=== PATIENT | female | born 1950 | race Caucasian/White ===

== ENCOUNTER → 2016-12-12 | Outpatient (CLI) | payer BC ==
--- NOTE | ~2016-12-12 | MY7 ---
[facility] A Service of [facility] & [facility] RADIOLOGY TEXT RESULTS PATIENT: TIEN GARVIN LOCATION: [facility] : 52 UNIT #: [id number] AGE: [address]: TORITO JOHNSON MD (INT MED) SEX: F ORDER DR: [id number] [facility] [address] [place], [place] [address] [id number] O MR#: [id number] Acc #: [id number] NAME: TIEN GARVIN. : 1950 SEX: F STUDY DATE/TIME: 12/12/2016 8:05 UNIT: [facility] ROOM: STUDY DESCRIPTION: MY Mammogram Dx Dig Lt Attending Physician: Torito Johnson M.D. Referring Physician: Torito Johnson M.D. Ordering Physician: Torito Johnson M.D. Primary Care Physician: Torito Johnson M.D. MEDICAL IMAGING REPORT This report is preliminary unless electronic signature is present EXAM Left digital diagnostic mammogram COMPARISON Bilateral diagnostic mammogram dated June 22, 2016 as well as left diagnostic mammogram dated September 06, 2015 and other mammograms dated June 23, 2015 and June 16, 2004. INDICATION Followup of probably benign left breast microcalcifications. FINDINGS Full field CC, MLO and XCCL views were obtained in addition to spot mag CC, XCCL and MLO views. 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 These microcalcifications are coral-like on the spot mag ML view. Left breast is otherwise mammographically stable. IMPRESSION Stable probably benign left breast microcalcifications in the 2:30 posterior third. These have demonstrated 1-year and 6-month stability. The patient is due for imaging of the right breast in June 2017 and as well the left breast microcalcifications should be reevaluated with bilateral diagnostic mammography in June 2017 to document overall 2-year stability of these probably benign left breast microcalcifications. Findings and recommendations were discussed with the patient upon termination of today's exam. Patients over the age of 40 are entered into a reminder system with target due date for the next mammogram. A result letter will also be sent to the patient. [facility] A Service of [facility] [place] RADIOLOGY TEXT RESULTS PATIENT: TIEN GARVIN LOCATION: [facility] : 52 UNIT #: [id number] AGE: [address]: TORITO JOHNSON MD (INT MED) SEX: F ORDER DR: BIRADS: 3 Probably Benign Finding; Short interval follow-up suggested Dictated by... Newton Briones M.D. THIS IS AN ELECTRONICALLY VERIFIED REPORT Newton Briones M.D. at 12/12/2016 1:07 PM Abbie TD: 12/12/2016 11:55 JOB #: [id number] MEDICAL IMAGING REPORT COPY
== END | disposition home or self-care (01) ==
LOC: CMAM 07:43
DX: R92.1 Mammographic calcification found on diagnostic imaging of breast (principal); R92.0 Mammographic microcalcification found on diagnostic imaging of breast
CPT/HCPCS: G0206

== ENCOUNTER → 2017-06-25 | Outpatient (CLI) | payer BC ==
--- NOTE | ~2017-06-25 | US128 ---
[id number] [facility] [address] [place], [place] [address] [id number] O MR#: [id number] [facility] #: [id number] NAME: TIEN GARVIN : 1950 SEX: F STUDY DATE/TIME: 06/25/2017 13:08 UNIT: [facility] ROOM: STUDY DESCRIPTION: Thyroid Attending Physician: Bossman Johnson M.D. Referring Physician: Bossman Johnson M.D. Ordering Physician: Bossman Property Management Intern Alex Primary Care Physician: Bossman Johnson M.D. MEDICAL IMAGING REPORT This report is preliminary unless electronic signature is present EXAM Ultrasound of the thyroid gland INDICATION Enlarged thyroid gland. Patient had a prior thyroid ultrasound performed in June 2016 which showed a hypoechoic nodule within the right thyroid lobe. This was stable when compared to September 2015. TECHNIQUE Rico-scale and color Doppler sonographic images were obtained through the thyroid gland. FINDINGS Right lobe of the thyroid gland measures 1.6 x 4.5 x 1.9 cm. Left lobe measures 1.7 x 3.7 x 1.7 cm. Isthmus measures about 3 mm in thickness. Within the right lobe of the thyroid gland, there is a somewhat ill-defined hypoechoic nodule measuring 7 x 6 x 7 mm. This appears unchanged when compared to the exam from September 2015. No additional nodules are seen on the right. Probable cyst is seen medially within the left lobe of the thyroid gland measuring 4 x 3 x 5 mm. No definite solid nodules are seen on the left. I do think that the probable cyst was probably present in June 2016 but was not measured as a nodule at that time. IMPRESSION 1. Stable hypoechoic nodule within the right lobe of the thyroid gland, unchanged since September 2015 and favored to be benign. 2. Probable cyst, or other benign lesion within the left lobe of the thyroid gland measuring 4 x 3 x 5 mm probably not significantly changed when compared to June 2016. Dictated by... Ximena Alcala M.D. THIS IS AN ELECTRONICALLY VERIFIED REPORT Ximena Alcala M.D. at 06/26/2017 5:07 PM AFF/kavon TD: 06/26/2017 08:28 JOB #: [id number] MEDICAL IMAGING REPORT Page 1 of 1 COPY
--- NOTE | ~2017-06-25 | MY26 ---
[facility] A Service of [facility] RADIOLOGY TEXT RESULTS PATIENT: TIEN GARVIN LOCATION: [facility] : 52 UNIT #: [id number] AGE: [address]: TORITO JOHNSON MD (INT MED) SEX: F ORDER DR: [id number] [facility] [address] [place], [place] [address] [id number] O MR#: [id number] Acc #: [id number] NAME: TIEN GARVIN : 1950 SEX: F STUDY DATE/TIME: 06/25/2017 12:46 UNIT: [facility] ROOM: STUDY DESCRIPTION: [facility] DIAGNOSTIC W/ CAD BILAT Attending Physician: Torito Johnson M.D. Referring Physician: Torito Johnson M.D. Ordering Physician: Torito Development Technical Leaddilma Johnson Primary Care Physician: Torito Johnson M.D. MEDICAL IMAGING REPORT This report is preliminary unless electronic signature is present EXAM Diagnostic mammogram, 06/25/2017 INDICATIONS Yearly screening on the right. Additional 6-month followup of the left breast for probably benign calcifications. Patient has no current complaints. TECHNIQUE Digital CC and MLO views of both breasts were obtained. Magnification CC and ML views of the left breast were obtained. Study is reviewed with an FDA-approved CAD device. Comparison made with 12/12/2016, 06/22/2016, 09/06/2015, and 06/23/2015. FINDINGS Breast parenchyma remains heterogeneously dense. No dominant masses or suspicious microcalcifications are seen. Scattered benign calcifications in both breasts are stable. The cluster in the upper outer left breast is also stable and therefore benign. Findings were discussed with the patient at the time of her examination today. IMPRESSION Benign mammogram. Routine yearly mammographic screening recommended. Patients over the age of 40 are entered into a reminder system with target due date for the next mammogram. A result letter will also be sent to the patient. BIRADS: 2 Benign finding Dictated by... [facility] A Service [facility] RADIOLOGY TEXT RESULTS PATIENT: TIEN GARVIN LOCATION: [facility] #: [id number] : 52 UNIT #: [id number] AGE: [address]: TORITO JOHNSON MD (INT MED) SEX: F ORDER DR: Giuliano Wade Jr., M.D. THIS IS AN ELECTRONICALLY VERIFIED REPORT Giuliano Wade Jr., M.D. at 06/26/2017 4:38 PM SAMY/solomon TD: 06/26/2017 03:17 JOB #: [id number] MEDICAL IMAGING REPORT Page 1 of 1 COPY
== END | disposition home or self-care (01) ==
LOC: CMAM 12:20
DX: R92.1 Mammographic calcification found on diagnostic imaging of breast (principal); E01.0 Iodine-deficiency related diffuse (endemic) goiter
CPT/HCPCS: 76536; G0204